=== PATIENT | male | born 1985 | race Caucasian/White ===

== ENCOUNTER 2017-01-17 19:14 | Emergency (ER) | payer OTHER ==
[2017-01-17 21:41] VITALS: BP 135/77
== END 2017-01-17 21:41 | disposition home or self-care (01) ==
LOC: ED 19:14
DX: T18.9XXA Foreign body of alimentary tract, part unspecified, initial encounter (principal); X58.XXXA Exposure to other specified factors, initial encounter; Y93.89 Activity, other specified; Y99.8 Other external cause status; Y92.89 Other specified places as the place of occurrence of the external cause